=== PATIENT | female | born 1995 | race Caucasian/White ===

== ENCOUNTER 2020-08-05 13:48 | Emergency (ER) | payer OTHER, SELFPAY ==
[2020-08-05 13:56] VITALS: BP 135/72; PULSE 85; RESP 18; TEMP 37.1; O2SAT 98; BMI 25.6
--- NOTE | 2020-08-05 14:12 | ED_ITS ---
HPI - Skin/Abscess/Foreign Bdy General Chief complaint: Skin/Abscess/Foreign Body Stated complaint: cut toe at nail salon, suspects infection Time Seen by Provider: 08/05/20 14:01 Source: patient Mode of arrival: Family Vehicle Limitations: no limitations History of Present Illness HPI narrative: 24F nonsmoker with noncontributory medical history presents with a chief complaint of some redness and irritation along the nail of her right great toe. Yesterday she was getting a pedicure and she states they told her she was starting to develop an ingrown toenail and elevated her nail and trim some of it and now she has some redness and tenderness along the nail fold. She has mild pain with ambulation and motion of her toe. She denies any drainage, red streaks or systemic findings such as fever, chills, nausea or vomiting. complaint: other Onset (ago): day(s) Tetanus up to date: yes Location: R foot Severity: mild Quality: aching Pain Consistency: constant Relieving factors: none Exacerbating factors: palpation and movement Associated symptoms: denies other symptoms Treatments prior to arrival: none Related Data Previous Rx's Medication Instructions Recorded mupirocin 1 applic TOPICAL BID #15 g 08/05/20 Allergies Allergy/AdvReac Type Severity Reaction Status Date / Time No Known Drug Allergies Allergy Verified 08/05/20 13:56 Review of Systems Review of Systems ROS Unobtainable: All systems reviewed & are unremarkable except as noted in HPI and below Constitutional Constitutional: Denies chills, Denies fatigue, Denies fever(s), Denies frequent falls, Denies lethargy and Denies weakness Eyes Eyes: Denies change in vision, Denies eye discharge, Denies irritation and Denies loss of vision ENT Ears, Nose, Mouth, and Throat: Denies change in voice, Denies dizziness, Denies neck pain, Denies sore throat and Denies throat swelling Cardiovascular Cardiovascular: Denies chest pain, Denies irregular heart rhythm, Denies lightheadedness, Denies palpitations, Denies dyspnea, Denies dyspnea on exertion and Denies orthopnea Respiratory Respiratory: Denies cough, Denies dyspnea, Denies dyspnea on exertion and Denies wheezing Gastrointestinal Gastrointestinal: Denies abdominal pain, Denies change in bowel habits, Denies diarrhea, Denies nausea and Denies vomiting Musculoskeletal Musculoskeletal: Denies neck pain and Denies numbness Integumentary/Breasts Skin/Breast: Denies pruritus, Denies erythema, Denies rash, Reports skin pain, Reports skin swelling and Denies wounds Neurologic Neurologic: Denies behavioral changes, Denies confusion, Denies dizziness, Denies frequent falls, Denies loss of vision, Denies numbness and Denies weakness Psychiatric Psychiatric: Denies anxiety, Denies behavioral changes, Denies confusion, Denies depression, Denies homicidal ideation and Denies suicidal ideation Endocrine Endocrine: Denies fatigue, Denies flushing and Denies palpitations Hematologic/Lymphatic Hematologic/Lymphatic: Denies easy bruising Allergic/Immunologic Allergic/Immunologic: Denies urticaria, Denies throat swelling and Denies wheezing Patient History Social History Smoking Status: Never smoker Smoking Status: Never smoker alcohol intake frequency: 0-2 drinks per day Alcohol type: hard liquor Substance Use Type: does not use Exam Narrative Exam Narrative: GEN: AOx3 and in mild distress EYES: Pupils are equal, round, and reactive to light and accommodation. Extraoccular muscles are intact bilaterally. There is no subconjunctival hemorrhage or exudate. CHEST: Lungs are clear to auscultation bilaterally and free of wheezes, rales, or rhonchi. Heart rate is regular rhythm, there are no murmurs, clicks, rubs, or gallops. There is no chest wall tenderness. ABD: Abdomen is soft and nontender. There is no guarding or rebound. Bowel so unds are normal in all 4 quadrants. There is no mass or organomegaly. EXT: Full painless ROM of all extremities with no loss of sensation or strength. SKIN: Minimal erythema at the medial edge of toenail and nail fold of right great toe. No fluctuance or induration, no drainage, no swelling be on the nail fold, no red streaks. Warm, pink, and dry. No erythema or rash Initial Vital Signs Initial Vital Signs: Vital Signs Temperature 98.8 F 08/05/20 13:56 Pulse Rate 85 08/05/20 13:56 Respiratory Rate 18 08/05/20 13:56 Blood Pressure 135/72 08/05/20 13:56 Pulse Oximetry 98 08/05/20 13:56 Course Vital Signs Vital signs: Vital Signs - 8 hr 08/05/20 13:56 Temperature 98.8 F Pulse Rate 85 Respiratory Rate 18 Blood Pressure 135/72 Pulse Oximetry 98 Discharge Plan Departure Patient Disposition: Home Clinical Impression: Paronychia due to ingrown nail Instructions: DI for Paronychia Activity Restrictions/Additional Instructions: *You have been diagnosed with [early paronychia right great toe] *What to do: *Take medications as directed *Follow up with your primary care provider in 2-3 days, call for an appointment. Let them know you were seen in the Emergency Department and that we ask that you be seen in follow up * please consider soaking your right foot in warm water with Epson salts twice daily *Return to ER if you should have any new, worsening or concerning symptoms, such as [increased pain, redness, drainage] Prescriptions: New mupirocin 2 % ointment 1 applic topical BID Qty: 15 RF: 0
== END 2020-08-05 14:11 | disposition home or self-care (01) ==
PROVIDERS: Emergency Provider Emergency Medicine
DX: L03.031 Cellulitis of right toe (principal)
CPT/HCPCS: 99281

== ENCOUNTER 2022-10-29 09:48 | Day surgery (SDC) | payer OTHER, SELFPAY ==
--- NOTE | 2022-10-29 | PATH_ITS ---
[facility] [place] Accession Number: [id number] No. of containers..01 Tissue . 01 Material submitted: . rectum - RECTAL BIOPSY . 01 Diagnosis: Rectum, Biopsy: Anorectal mucosa with features suggestive of mucosal prolapse. Negative for active, chronic, and microscopic colitis. Negative for granulomas, dysplasia, and malignancy. MRV 11/04/2022 1810 Local . 01 Electronically signed: . Marcia Faust MD, Pathologist NPI- [id number] . 01 Gross description: . The specimen is received in formalin labeled with the patient's name, , and rectal biopsy, and consists of four chapa soft tissue fragments ranging from 0.1 cm to 0.2 cm in greatest dimension. Submitted entirely in cassette A1. ([id number]) /FRR 11/01/2022 1433 Local . 01 Pathologist provided ICD-10: K64.9 . 01 CPT . 285932 Specimen Comment: A courtesy copy of this report has been sent to [phone] Performed at: [facility] [address] [place] [address], [place], [place] [id number] MD Angel Luis Soriano MD Phone: [phone]
[2022-10-29 10:05] VITALS: BP 118/80; PULSE 67; RESP 19; TEMP 36.8; O2SAT 100; BMI 27.4
[2022-10-29] MEDS: LACTATED RINGERS 1,000 ML 100 ML IV (10:15)
[2022-10-29 10:21] VITALS: BMI 27.4
--- NOTE | 2022-10-29 10:28 | PM.PREOP ---
Pre-operative Note Interval Note History & Physical reviewed/Exam performed by Physician: Yes Changes to H&P: No
[2022-10-29] MEDS: BUPIVACAINE 0.25% (PF) VIAL 30 ML INJ (10:55)
--- NOTE | 2022-10-29 10:56 | SUR.OPER ---
Lithotomy on padded OR bed, head on pillow, arms secured on padded arm boards at <90 degrees abduction. Legs secured in padded yellow fins stirrups.
[2022-10-29 11:10] VITALS: BP 140/83; PULSE 94; RESP 20; TEMP 36.1; O2SAT 100
[2022-10-29 11:15] VITALS: BP 133/82; PULSE 92; RESP 12; O2SAT 98
[2022-10-29 11:20] VITALS: BP 134/72; PULSE 92; RESP 16; TEMP 36.3; O2SAT 99
[2022-10-29 11:27] VITALS: BP 135/82; PULSE 80; RESP 12; TEMP 36.3; O2SAT 98
--- NOTE | 2022-10-29 12:01 | P.OP_ITS ---
Operative Date/Time/Diagnoses Date of procedure: 10/29/22 Time of procedure: 12:15 Pre-op diagnosis: Rectal pain Rectal bleeding Post-op diagnosis: other (Proctitis, anal fissure) Procedure & Clinicians Procedure: Rectal examination under anesthesia Same procedure as scheduled: Yes Indications: 27-year-old woman previous laser hemorrhoide[facility] here with continued rectal pain and bleeding. Surgeon: Farhat Sheriff Anesthesia Type: General Operative Notes Findings: Proctitis, posterior anal fissure Specimen(s): other (Rectal biopsy) Estimated Blood Loss (mL): 10 Procedure in detail: Patient was brought to the operating room placed supine on the table. Bilateral lower extremity compression devices were applied. General anesthesia was induced and she was intubated with an LMA. She was then placed into lithotomy position appropriately padded. Time-out was performed. We began by inserting the colonoscope into the rectum it was retroflexed and this demonstrated diffuse proctitis. There was no significant hemorrhoidal tissue. Multiple biopsies of the rectum were performed with forceps. The anal canal was mildly stenotic. There was a posterior midline fissure noted. There were no other external pathologies. She tolerated the procedure well and was transferred to recovery in stable condition. Complications: none Post-operative Condition: stable Disposition: same day surgery
== END 2022-10-29 12:00 | disposition home or self-care (01) ==
PROVIDERS: Referring Provider Surgery; Visit Provider Surgery
PROC: (CPT 45305; principal; 2022-10-29 11:00)
DX: K62.89 Other specified diseases of anus and rectum (principal); K60.2 Anal fissure, unspecified; K62.4 Stenosis of anus and rectum
CPT/HCPCS: 45305; J1100; J2405; J2704; J3010; J3490

== ENCOUNTER 2022-11-04 15:17 | Emergency (ER) | payer OTHER, SELFPAY ==
[2022-11-04 15:18] VITALS: BP 154/88; PULSE 86; RESP 15; TEMP 36.9; O2SAT 98; BMI 27.4
[2022-11-04 15:22] VITALS: BP 154/88; PULSE 88; O2SAT 98
[2022-11-04 15:30] VITALS: BP 145/94; PULSE 79; O2SAT 98
[2022-11-04 16:00] VITALS: BP 144/88; PULSE 88; O2SAT 97
[2022-11-04] MEDS: PANTOPRAZOLE 40 MG VIAL 80 MG IV (16:07)
[2022-11-04] MEDS: ONDANSETRON 4 MG/2 ML INJ IV (16:07)
[2022-11-04 16:10] LABS: INR 0.9 (0.9-1.3); Prothrombin Time 10.4 SECONDS (10.1-12.7)
[2022-11-04 16:12] LABS: PTT Partial Thromboplastin Tim 25 SECONDS (26-36)
[2022-11-04] MEDS: SODIUM CHLORIDE 0.9% 1,000 ML 1000 ML IV (16:17)
[2022-11-04] MEDS: ACETAMINOPHEN 325 MG TABLET 975 MG PO (16:17)
[2022-11-04 16:28] LABS: Add Manual Diff / Slide Review NO; Basophils Absolute Auto 0 /uL (0-100); Basophils Percent Auto 0.4 % (0-2); Eosinophils Absolute Auto 100 /uL (0-450); Eosinophils Percent Auto 1.3 % (2-4); Hematocrit 39.1 % (36-46); Hemoglobin 13.3 g/dL (12.0-16.0); Lymphocytes Absolute Auto 2400 /uL (1100-4500); Lymphocytes Percent Auto 28.9 % (25-40); Mean Corpuscular HGB Conc 34.1 % (30-36); Mean Corpuscular Hemoglobin 29.9 PG (26-34); Mean Corpuscular Volume 87.6 fL (80-100); Monocytes Absolute Auto 800 /uL (0-900); Monocytes Percent Auto 9.6 % (3-14); Neutrophils Absolute Auto 5000 /uL (1500-7000); Neutrophils Percent Auto 59.8 % (50-75); Platelet Count 313 X10^3/uL (150-400); Red Blood Cell Count 4.47 X10^6/uL (4.0-5.2); Red Cell Distribution Width 12.8 % (11.6-14.8); White Blood Cell Count 8.4 X10^3/uL (4.5-11.0)
[2022-11-04 16:38] VITALS: BP 119/73; PULSE 84; O2SAT 97
[2022-11-04 16:45] LABS: Alanine Aminotransferase 31 IU/L (<35); Albumin 4.3 g/dL (3.5-5.0); Albumin Globulin Ratio 1.3 (1.0-2.8); Alkaline Phosphatase 51 U/L (38-126); Aspartate Aminotransferase 28 IU/L (14-36); BUN Creatinine Ratio 11.8 (6-22); Bilirubin Total 0.3 mg/dL (0.2-1.3); Blood Urea Nitrogen 9 mg/dL (7-17); Calcium 9.6 mg/dL (8.4-10.2); Carbon Dioxide 27 mmol/L (22-32); Chloride 102 mmol/L (98-107); Estimated Glomerular Filt Rate > 60 mL/min (>60); Globulin 3.2 g/dL (1.7-4.1); Glucose 101 mg/dL (70-100); HEMOLYSIS < 15 (0-50); Potassium 3.6 mmol/L (3.4-5.1); Sodium 138 mmol/L (137-145); Total Protein 7.5 g/dL (6.3-8.2)
[2022-11-04 17:00] VITALS: BP 140/82; PULSE 76; O2SAT 98
--- NOTE | 2022-11-04 18:11 | ED_ITS ---
HPI - GI Bleed General Chief complaint: GI Bleed Stated complaint: intestinal bleeding Time Seen by Provider: 11/04/22 16:05 Source: patient Mode of arrival: Ambulatory Limitations: no limitations History of Present Illness HPI Narrative: Patient is a 27-year-old female. Over the past 6 months has been having issues with rectal bleeding. She did have an exam under anesthesia with general surgery recently and was told that she has fissures. Today she had another episode of rectal bleeding. She does have some very minor lower abdominal tenderness. No fevers. No vomiting. No urinary symptoms. No vaginal bleeding. Not on blood thinners. She is on stool softeners and has been having some diarrhea recently as well. No recent travel. No recent antibiotics. Related Data Home Medications Medication Instructions Recorded Confirmed drospirenone 3 mg-ethinyl 1 tab PO DAILY 10/24/22 10/29/22 estradiol 0.02 mg tablet (GEOFF (28)) sertraline 100 mg tablet (Zoloft) 100 mg PO DAILY 10/24/22 10/29/22 sumatriptan succinate 25 mg tablet 25 mg PO ONCE 10/24/22 10/29/22 zolpidem 10 mg tablet (Ambien) 10 mg PO BEDTIME PRN Migraine 10/24/22 10/29/22 NIFEDIPINE TOPICAL topical 10/29/22 Previous Rx's Medication Instructions Recorded acetaminophen 325 mg capsule 650 mg PO QID PRN pain #60 caps 10/29/22 (Tylenol) docusate sodium 100 mg capsule 100 mg PO BID #30 caps 10/29/22 (Colace) mesalamine 1,000 mg rectal 1 g [place] BEDTIME 6 weeks #30 ea 10/29/22 suppository wheat dextrin 3 gram/3.8 gram oral 3 g PO BID #144 grams 10/29/22 powder (Benefiber Sugar Free (dextrin)) Allergies Allergy/AdvReac Type Severity Reaction Status Date / Time Sulfa (Sulfonamide Allergy Verified 11/04/22 15:25 Antibiotics) Review of Systems Constitutional Constitutional: Reports system reviewed and no additional complaints, except as documented Gastrointestinal Gastrointestinal: Reports system reviewed and no additional complaints, except as documented Genitourinary Genitourinary: Reports system reviewed and no additional complaints, except as documented Integumentary/Breasts Skin/Breast: Reports system reviewed and no additional complaints, except as documented Hematologic/Lymphatic On Anticoagulants: No Patient History Medical History Hemorrhoids Migraines PCOS (polycystic ovarian syndrome) PTSD (post-traumatic stress disorder) Surgical History H/O hemorrhoidectomy Hx of tonsillectomy [place] teeth extracted Family History Father Cancer Grandfather Cancer Uncle Diabetes mellitus Social History marital status: household members: spouse and children lives independently: Yes occupational status: employed Smoking Status: Never smoker alcohol intake: current substance use type: does not use Smoking Status: Never smoker alcohol intake frequency: holidays/special occasions only Alcohol type: hard liquor Substance Use Type: does not use Exam Initial Vital Signs Initial Vital Signs: Vital Signs Temperature 98.5 F 11/04/22 15:18 Pulse Rate 86 11/04/22 15:18 Respiratory Rate 15 11/04/22 15:18 Blood Pressure 154/88 H 11/04/22 15:18 Pulse Oximetry 98 11/04/22 15:18 Oxygen Delivery Method Room Air 11/04/22 15:18 Const General: cooperative, comfortable and No ill appearing HENMT Head: normal to inspection and normocephalic GI Inspection: normal to inspection and non-distended Palpation: soft Skin General: no rashes or lesions noted Neuro General: patient alert, patient awake and moves all extremities Extrem General: normal to inspection Course Orders Ordered: ED Orders 11/04/22 15:44 EKG-12 Lead Stat 11/04/22 15:45 Complete Blood Count AUTO DIFF Stat Comprehensive Metabolic Panel Stat PTT Partial Thromboplastin Wojciech Stat Prothrombin Time INR Stat Type and Screen Stat Discontinued Medications Acetaminophen (Acetaminophen 325 Mg Tablet) 975 mg PO NOW ONE Stop: 11/04/22 16:14 Last Admin: 11/04/22 16:17 Dose: 975 mg Documented By: ASHLI Sodium Chloride (Normal Saline 0.9%) 1,000 mls @ 1,000 mls/hr IV BOLUS ONE Stop: 11/04/22 17:12 Last Infusion: 11/04/22 17:23 Dose: 0 mls/hr Documented By: Admin: 11/04/22 16:17 Dose: 1,000 mls/hr Documented By: ASHLI Ondansetron HCl (Ondansetron 4 Mg/2 Ml Inj) 4 mg IV NOW PRN PRN Reason: Nausea And Vomiting Last Admin: 11/04/22 16:07 Dose: 4 mg Documented By: ASHLI Pantoprazole Sodium (Pantoprazole 40 Mg Vial) 80 mg IV NOW ONE Stop: 11/04/22 15:45 Last Admin: 11/04/22 16:07 Dose: 80 mg Documented By: ASHLI Vital Signs Vital signs: Vital Signs - 8 hr 11/04/22 16:38 11/04/22 16:38 11/04/22 17:00 Pulse Rate 84 Blood Pressure 119/73 140/82 Pulse Oximetry 97 11/04/22 17:00 Pulse Rate 76 Blood Pressure Pulse Oximetry 98 MDM - GI Bleed Lab Data Attestation: I reviewed the patient's lab results. 11/04/22 15:45 11/04/22 15:45 Labs: Lab Results 11/04/22 11/04/22 11/04/22 Range/Units 15:45 15:45 15:45 WBC 8.4 (4.5-11.0) X10^3/uL RBC 4.47 (4.0-5.2) X10^6/uL Hgb 13.3 (12.0-16.0) g/dL Hct 39.1 (36-46) % MCV 87.6 (80-100) fL MCH 29.9 (26-34) PG MCHC 34.1 (30-36) % RDW 12.8 (11.6-14.8) % Plt Count 313 (150-400) X10^3/uL Neut % (Auto) 59.8 (50-75) % Lymph % (Auto) 28.9 (25-40) % Morton % (Auto) 9.6 (3-14) % Eos % (Auto) 1.3 L (2-4) % Baso % (Auto) 0.4 (0-2) % Neut # (Auto) 5000 (5255-7419) /uL Lymph # (Auto) 2400 (8879-5998) /uL Morton # (Auto) 800 (0-900) /uL Eos # (Auto) 100 (0-450) /uL Baso # (Auto) 0 (0-100) /uL PT 10.4 (10.1-12.7) SECONDS INR 0.9 (0.9-1.3) APTT 25 L (26-36) SECONDS Sodium 138 (137-145) mmol/L Potassium 3.6 (3.4-5.1) mmol/L Chloride 102 (98-107) mmol/L Carbon Dioxide 27 (22-32) mmol/L BUN 9 (7-17) mg/dL Creatinine 0.76 (0.52-1.04) mg/dL Estimated GFR > 60 (>60) mL/min BUN/Creatinine Ratio 11.8 (6-22) Glucose 101 H (70-100) mg/dL Calcium 9.6 (8.4-10.2) mg/dL Total Bilirubin 0.3 (0.2-1.3) mg/dL AST 28 (14-36) IU/L ALT 31 (<35) IU/L Alkaline Phosphatase 51 (38-126) U/L Total Protein 7.5 (6.3-8.2) g/dL Albumin 4.3 (3.5-5.0) g/dL Globulin 3.2 (1.7-4.1) g/dL Albumin/Globulin Ratio 1.3 (1.0-2.8) Blood Type Antibody Screen 11/04/22 Range/Units 15:45 WBC (4.5-11.0) X10^3/uL RBC (4.0-5.2) X10^6/uL Hgb (12.0-16.0) g/dL Hct (36-46) % MCV (80-100) fL MCH (26-34) PG MCHC (30-36) % RDW (11.6-14.8) % Plt Count (150-400) X10^3/uL Neut % (Auto) (50-75) % Lymph % (Auto) (25-40) % Morton % (Auto) (3-14) % Eos % (Auto) (2-4) % Baso % (Auto) (0-2) % Neut # (Auto) (1956-9021) /uL Lymph # (Auto) (1572-4896) /uL Morton # (Auto) (0-900) /uL Eos # (Auto) (0-450) /uL Baso # (Auto) (0-100) /uL PT (10.1-12.7) SECONDS INR (0.9-1.3) APTT (26-36) SECONDS Sodium (137-145) mmol/L Potassium (3.4-5.1) mmol/L Chloride (98-107) mmol/L Carbon Dioxide (22-32) mmol/L BUN (7-17) mg/dL Creatinine (0.52-1.04) mg/dL Estimated GFR (>60) mL/min BUN/Creatinine Ratio (6-22) Glucose (70-100) mg/dL Calcium (8.4-10.2) mg/dL Total Bilirubin (0.2-1.3) mg/dL AST (14-36) IU/L ALT (<35) IU/L Alkaline Phosphatase (38-126) U/L Total Protein (6.3-8.2) g/dL Albumin (3.5-5.0) g/dL Globulin (1.7-4.1) g/dL Albumin/Globulin Ratio (1.0-2.8) Blood Type O Positive Antibody Screen Negative Point of Care Testing Test Results Negative Stool Occult Blood Positive Urine Dip Bedside Urine Glucose Negative Bedside Urine Bilirubin - Negative Bedside Urine Ketone - Negative Urine Specific [place] 1.005 Bedside Urine Occult Blood - Negative Bedside Urine pH 7.0 Bedside Urine Protein - Negative Bedside Urine Urobilinogen - Negative Bedside Urine Nitrite - Negative Bedside Urine Leukocytes - Negative Esterase MDM Narrative Medical decision making narrative: Benign exam. Vital signs unremarkable. Labs unremarkable. Has had issues with GI bleeding prior to the visit today. No indication for emergent surgical consultation or admission to the hospital will discharge patient home with return precautions. She expressed understanding and agreement. Discharge Plan Departure Patient Disposition: Home Clinical Impression: Bright red blood per rectum Instructions: DI for Rectal Bleeding Activity Restrictions/Additional Instructions: Continue to take all of your medications as directed. Keep all of your scheduled medical appointments. Follow all of the instructions given to you by Dr. Sheriff.. Return to the emergency department for new or worsening symptoms. Prescriptions: No Action NIFEDIPINE TOPICAL topical Rx Instructions: 0.2% NIFEDIPINE AND 2% LIDOCAINE CALLED INTO [facility]. 30GRAMS 1 REFILL [phone] zolpidem [Ambien] 10 mg tablet 10 mg PO BEDTIME PRN (Reason: Migraine) drospirenone-ethinyl estradiol [GEOFF (28)] 3-0.02 mg tablet 1 tab PO DAILY sertraline [Zoloft] 100 mg tablet 100 mg PO DAILY sumatriptan succinate 25 mg tablet 25 mg PO ONCE docusate sodium [Colace] 100 mg capsule 100 mg PO BID Qty: 30 0RF acetaminophen [Tylenol] 325 mg capsule 650 mg PO QID PRN (Reason: pain) Qty: 60 0RF Benefiber Sugar Free (dextrin) 3 gram/3.8 gram powder 3 g PO BID Qty: 144 0RF Rx Instructions: mix into at least 4 oz water or juice before administering mesalamine 1,000 mg suppository 1 g [place] BEDTIME 42 Days Qty: 30 3RF Referrals: Miscellaneous,Doctor, MD [Primary Care Provider] - Stand Alone Forms: Patient Portal/API, Work Release Note
== END 2022-11-04 18:15 | disposition home or self-care (01) ==
PROVIDERS: Emergency Medicine; Emergency Provider Emergency Medicine
DX: K62.5 Hemorrhage of anus and rectum (principal)
CPT/HCPCS: 36415; 80053; 81003; 81025; 82272; 85025; 85610; 85730; 86850; 86900; 86901; 93005; 96361; 96374; 96375; 99284; C9113; J2405

== ENCOUNTER 2022-11-14 11:06 | Emergency (ER) | payer OTHER, SELFPAY ==
[2022-11-14 11:13] VITALS: BP 163/77; PULSE 78; RESP 18; TEMP 36.6; O2SAT 98; BMI 27.4
[2022-11-14 11:37] LABS: Add Manual Diff / Slide Review NO; Basophils Absolute Auto 0 /uL (0-100); Basophils Percent Auto 0.7 % (0-2); Eosinophils Absolute Auto 100 /uL (0-450); Eosinophils Percent Auto 0.9 % (2-4); Hematocrit 38.4 % (36-46); Hemoglobin 12.9 g/dL (12.0-16.0); Lymphocytes Absolute Auto 1900 /uL (1100-4500); Lymphocytes Percent Auto 26.3 % (25-40); Mean Corpuscular HGB Conc 33.6 % (30-36); Mean Corpuscular Hemoglobin 29.5 PG (26-34); Mean Corpuscular Volume 87.9 fL (80-100); Monocytes Absolute Auto 500 /uL (0-900); Monocytes Percent Auto 7.4 % (3-14); Neutrophils Absolute Auto 4600 /uL (1500-7000); Neutrophils Percent Auto 64.7 % (50-75); Platelet Count 309 X10^3/uL (150-400); Red Blood Cell Count 4.37 X10^6/uL (4.0-5.2); Red Cell Distribution Width 13.2 % (11.6-14.8); White Blood Cell Count 7.1 X10^3/uL (4.5-11.0)
[2022-11-14 11:43] LABS: INR 0.9 (0.9-1.3); Prothrombin Time 10.4 SECONDS (10.1-12.7)
[2022-11-14 11:46] LABS: PTT Partial Thromboplastin Tim 25 SECONDS (26-36)
[2022-11-14] MEDS: ONDANSETRON 4 MG/2 ML INJ IV (11:46)
[2022-11-14] MEDS: PANTOPRAZOLE 40 MG VIAL 80 MG IV (11:46)
[2022-11-14 11:48] LABS: Alanine Aminotransferase 28 IU/L (<35); Albumin 4.3 g/dL (3.5-5.0); Albumin Globulin Ratio 1.4 (1.0-2.8); Alkaline Phosphatase 61 U/L (38-126); Aspartate Aminotransferase 32 IU/L (14-36); BUN Creatinine Ratio 11.8 (6-22); Bilirubin Total 0.4 mg/dL (0.2-1.3); Blood Urea Nitrogen 9 mg/dL (7-17); Calcium 9.2 mg/dL (8.4-10.2); Carbon Dioxide 26 mmol/L (22-32); Chloride 104 mmol/L (98-107); Estimated Glomerular Filt Rate > 60 mL/min (>60); Glucose 95 mg/dL (70-100); HEMOLYSIS < 15 (0-50); Potassium 3.8 mmol/L (3.4-5.1); Sodium 138 mmol/L (137-145); Total Protein 7.3 g/dL (6.3-8.2)
[2022-11-14 12:22] VITALS: BP 130/75; PULSE 73; O2SAT 98
[2022-11-14 12:30] VITALS: BP 120/70; PULSE 70; O2SAT 98
--- NOTE | 2022-11-14 12:35 | ED_ITS ---
HPI - GI Bleed <Ronald Koo PA-C - Last Filed: 11/14/22 18:03> General Chief complaint: GI Bleed Stated complaint: Rectal bleeding Time Seen by Provider: 11/14/22 12:26 Source: patient Mode of arrival: Ambulatory History of Present Illness HPI Narrative: This is a 18 now female presents emergency department due to 3 episodes of rectal bleeding this morning. Patient states that was the stool was ?dark and bright red and ?. She reports some discomfort in her lower abdomen. She states that she would exam under anesthesia with Dr. Sheriff 3 weeks ago and was told that she would anal fissures as well as mucosal prolapse. She was supposed to follow up with Dr. Sheriff today but came here due to the episodes of rectal bleeding today. Denies any nausea, vomiting, chest pain, shortness breath, or any other concerning signs or symptoms. Related Data Home Medications Medication Instructions Recorded Confirmed drospirenone 3 mg-ethinyl 1 tab PO DAILY 10/24/22 10/29/22 estradiol 0.02 mg tablet (GEOFF (28)) sertraline 100 mg tablet (Zoloft) 100 mg PO DAILY 10/24/22 10/29/22 sumatriptan succinate 25 mg tablet 25 mg PO ONCE 10/24/22 10/29/22 zolpidem 10 mg tablet (Ambien) 10 mg PO BEDTIME PRN Migraine 10/24/22 10/29/22 NIFEDIPINE TOPICAL topical 10/29/22 Previous Rx's Medication Instructions Recorded acetaminophen 325 mg capsule 650 mg PO QID PRN pain #60 caps 10/29/22 (Tylenol) docusate sodium 100 mg capsule 100 mg PO BID #30 caps 10/29/22 (Colace) mesalamine 1,000 mg rectal 1 g [place] BEDTIME 6 weeks #30 ea 10/29/22 suppository wheat dextrin 3 gram/3.8 gram oral 3 g PO BID #144 grams 10/29/22 powder (Benefiber Sugar Free (dextrin)) Allergies Allergy/AdvReac Type Severity Reaction Status Date / Time Sulfa (Sulfonamide Allergy Verified 11/14/22 11:17 Antibiotics) Review of Systems <Ronald Koo PA-C - Last Filed: 11/14/22 18:03> Review of Systems Narrative: GENERAL: Denies chills, fatigue, malaise, fever, sweats. HEENT: Denies sinus pain, ear pain, sore throat, difficulty swallowing, dizziness. RESPIRATORY: Denies dyspnea, cough, wheezing, hemoptysis, sputum. CARDIOVASCULAR: Denies chest pain, palpitations, orthopnea, edema, GASTROINTESTINAL: Reports rectal bleeding : Denies dysuria, frequency, incontinence, hematuria, urinary retention. MUSCULOSKELETAL: denies weakness, joint pain, or bony pain SKIN: Denies rash, skin lesions, or other NEUROLOGIC: Denies weakness, headache, numbness, change in speech, confusion, seizures, incoordination. PSYCHIATRIC: No concerning psychosocial issues. 12 point review of systems is negative except for those stated above Patient History <Ronald Koo PA-C - Last Filed: 11/14/22 18:03> Medical History Hemorrhoids Migraines PCOS (polycystic ovarian syndrome) PTSD (post-traumatic stress disorder) Surgical History H/O hemorrhoidectomy Hx of tonsillectomy [place] teeth extracted Family History Father Cancer Grandfather Cancer Uncle Diabetes mellitus Social History marital status: household members: spouse and children lives independently: Yes occupational status: employed Smoking Status: Never smoker alcohol intake: current substance use type: does not use Smoking Status: Never smoker alcohol intake frequency: holidays/special occasions only Alcohol type: hard liquor Substance Use Type: does not use Exam <Ronald Koo PA-C - Last Filed: 11/14/22 18:03> Narrative Exam Narrative: GENERAL: Well-developed patient, in mild distress. HEAD: Atraumatic. Normocephalic. EYES: Pupils equal round and reactive. Extraocular motions intact. No scleral icterus. No injection or drainage. ENT: Nose without bleeding, purulent drainage. Throat without erythema, tonsillar hypertrophy or exudate. Airway patent. NECK: Trachea midline. Non tender CARDIOVASCULAR: Regular rate and rhythm without murmurs, gallops, or rubs. RESPIRATORY: Clear to auscultation. Breath sounds equal bilaterally. No wheezes, rales, or rhonchi. GASTROINTESTINAL: Mild tenderness to palpation to the suprapubic area EXTREMITIES: No edema or joint tenderness. BACK: Nontender without deformity or crepitance. No flank tenderness. NEURO: AOx3. SKIN: No rash or erythema of visible areas Initial Vital Signs Initial Vital Signs: Vital Signs Temperature 97.8 F 11/14/22 11:13 Pulse Rate 78 11/14/22 11:13 Respiratory Rate 18 11/14/22 11:13 Blood Pressure 163/77 H 11/14/22 11:13 Pulse Oximetry 98 11/14/22 11:13 Oxygen Delivery Method Room Air 11/14/22 11:13 <Kasey Tillman DO - Last Filed: 11/15/22 07:20> Initial Vital Signs Initial Vital Signs: Vital Signs Temperature 97.8 F 11/14/22 11:13 Pulse Rate 78 11/14/22 11:13 Respiratory Rate 18 11/14/22 11:13 Blood Pressure 163/77 H 11/14/22 11:13 Pulse Oximetry 98 11/14/22 11:13 Oxygen Delivery Method Room Air 11/14/22 11:13 Course <Ronald Koo PA-C - Last Filed: 11/14/22 18:03> Orders Ordered: Discontinued Medications Ondansetron HCl (Ondansetron 4 Mg/2 Ml Inj) 4 mg IV NOW PRN PRN Reason: Nausea And Vomiting Last Admin: 11/14/22 11:46 Dose: 4 mg Documented By: MARK Ondansetron HCl (Ondansetron 4 Mg Odt) 4 mg SL NOW PRN PRN Reason: Nausea And Vomiting Pantoprazole Sodium (Pantoprazole 40 Mg Vial) 80 mg IV NOW ONE Stop: 11/14/22 11:17 Last Admin: 11/14/22 11:46 Dose: 80 mg Documented By: MARK Vital Signs Vital signs: Vital Signs - 8 hr 11/14/22 11:13 11/14/22 12:22 11/14/22 12:22 Temperature 97.8 F Pulse Rate 78 73 Respiratory Rate 18 Blood Pressure 163/77 H 130/75 Pulse Oximetry 98 98 Oxygen Delivery Method Room Air 11/14/22 12:30 11/14/22 12:30 11/14/22 13:00 Temperature Pulse Rate 70 Respiratory Rate Blood Pressure 120/70 139/75 Pulse Oximetry 98 Oxygen Delivery Method 11/14/22 13:00 Temperature Pulse Rate 83 Respiratory Rate Blood Pressure Pulse Oximetry 98 Oxygen Delivery Method <Kasey Tillman DO - Last Filed: 11/15/22 07:20> Orders Ordered: Discontinued Medications Ondansetron HCl (Ondansetron 4 Mg/2 Ml Inj) 4 mg IV NOW PRN PRN Reason: Nausea And Vomiting Last Admin: 11/14/22 11:46 Dose: 4 mg Documented By: MARK Ondansetron HCl (Ondansetron 4 Mg Odt) 4 mg SL NOW PRN PRN Reason: Nausea And Vomiting Pantoprazole Sodium (Pantoprazole 40 Mg Vial) 80 mg IV NOW ONE Stop: 11/14/22 11:17 Last Admin: 11/14/22 11:46 Dose: 80 mg Documented By: MARK Vital Signs Vital signs: Vital Signs - 8 hr 11/14/22 11:13 11/14/22 12:22 11/14/22 12:22 Temperature 97.8 F Pulse Rate 78 73 Respiratory Rate 18 Blood Pressure 163/77 H 130/75 Pulse Oximetry 98 98 Oxygen Delivery Method Room Air 11/14/22 12:30 11/14/22 12:30 11/14/22 13:00 Temperature Pulse Rate 70 Respiratory Rate Blood Pressure 120/70 139/75 Pulse Oximetry 98 Oxygen Delivery Method 11/14/22 13:00 Temperature Pulse Rate 83 Respiratory Rate Blood Pressure Pulse Oximetry 98 Oxygen Delivery Method MDM - GI Bleed <Ronald Koo PA-C - Last Filed: 11/14/22 18:03> Lab Data 11/14/22 11:23 11/14/22 11:23 Labs: Lab Results 11/14/22 11/14/22 11/14/22 Range/Units 11:23 11:23 11:23 WBC 7.1 (4.5-11.0) X10^3/uL RBC 4.37 (4.0-5.2) X10^6/uL Hgb 12.9 (12.0-16.0) g/dL Hct 38.4 (36-46) % MCV 87.9 (80-100) fL MCH 29.5 (26-34) PG MCHC 33.6 (30-36) % RDW 13.2 (11.6-14.8) % Plt Count 309 (150-400) X10^3/uL Neut % (Auto) 64.7 (50-75) % Lymph % (Auto) 26.3 (25-40) % [place] % (Auto) 7.4 (3-14) % Eos % (Auto) 0.9 L (2-4) % Baso % (Auto) 0.7 (0-2) % Neut # (Auto) 4600 (4314-5444) /uL Lymph # (Auto) 1900 (5129-4663) /uL [place] # (Auto) 500 (0-900) /uL Eos # (Auto) 100 (0-450) /uL Baso # (Auto) 0 (0-100) /uL PT 10.4 (10.1-12.7) SECONDS INR 0.9 (0.9-1.3) APTT 25 L (26-36) SECONDS Sodium 138 (137-145) mmol/L Potassium 3.8 (3.4-5.1) mmol/L Chloride 104 (98-107) mmol/L Carbon Dioxide 26 (22-32) mmol/L BUN 9 (7-17) mg/dL Creatinine 0.76 (0.52-1.04) mg/dL Estimated GFR > 60 (>60) mL/min BUN/Creatinine Ratio 11.8 (6-22) Glucose 95 (70-100) mg/dL Calcium 9.2 (8.4-10.2) mg/dL Total Bilirubin 0.4 (0.2-1.3) mg/dL AST 32 (14-36) IU/L ALT 28 (<35) IU/L Alkaline Phosphatase 61 (38-126) U/L Total Protein 7.3 (6.3-8.2) g/dL Albumin 4.3 (3.5-5.0) g/dL Globulin 3.0 (1.7-4.1) g/dL Albumin/Globulin Ratio 1.4 (1.0-2.8) Blood Type Antibody Screen 11/14/22 Range/Units 11:23 WBC (4.5-11.0) X10^3/uL RBC (4.0-5.2) X10^6/uL Hgb (12.0-16.0) g/dL Hct (36-46) % MCV (80-100) fL MCH (26-34) PG MCHC (30-36) % RDW (11.6-14.8) % Plt Count (150-400) X10^3/uL Neut % (Auto) (50-75) % Lymph % (Auto) (25-40) % [place] % (Auto) (3-14) % Eos % (Auto) (2-4) % Baso % (Auto) (0-2) % Neut # (Auto) (0443-1080) /uL Lymph # (Auto) (4101-8454) /uL [place] # (Auto) (0-900) /uL Eos # (Auto) (0-450) /uL Baso # (Auto) (0-100) /uL PT (10.1-12.7) SECONDS INR (0.9-1.3) APTT (26-36) SECONDS Sodium (137-145) mmol/L Potassium (3.4-5.1) mmol/L Chloride (98-107) mmol/L Carbon Dioxide (22-32) mmol/L BUN (7-17) mg/dL Creatinine (0.52-1.04) mg/dL Estimated GFR (>60) mL/min BUN/Creatinine Ratio (6-22) Glucose (70-100) mg/dL Calcium (8.4-10.2) mg/dL Total Bilirubin (0.2-1.3) mg/dL AST (14-36) IU/L ALT (<35) IU/L Alkaline Phosphatase (38-126) U/L Total Protein (6.3-8.2) g/dL Albumin (3.5-5.0) g/dL Globulin (1.7-4.1) g/dL Albumin/Globulin Ratio (1.0-2.8) Blood Type O Positive Antibody Screen Negative Point of Care Testing Test Results Negative Urine Dip Bedside Urine Glucose Negative Bedside Urine Bilirubin - Negative Bedside Urine Ketone - Negative Urine Specific Marissa 1.015 Bedside Urine Occult Blood - Negative Bedside Urine pH 6.0 Bedside Urine Protein - Negative Bedside Urine Urobilinogen - Negative Bedside Urine Nitrite - Negative Bedside Urine Leukocytes - Negative Esterase MDM Narrative Medical decision making narrative: MDM * differential diagnosis includes but not limited to upper GI bleed, lower GI bleed, hemorrhoids, anal fissures * Prior records reviewed: Patient was seen here 10 days ago for similar complaint. Has had issues with rectal bleeding for the last 6 months. Did not exam under anesthesia with general surgery recently and was told that she would anal fissures. History of hemorrhoidectomy lab work and vital signs unremarkable. Patient was discharged with return precautions given. * My lab interpretation: CBC unremarkable, no signs of anemia, PT, PTT, INR unremarkable. CMP unrema rkable BUN and creatinine within normal limits and low concern for upper GI bleed. * My imgaing interpretation: None obtained * Clinical Decision Rules/Scores evaluated: None * Independent discussions with: None ED Course: This is an otherwise healthy 27-year-old female presents to the emergency department complaining of repeated GI bleeding. She was recently seen by Dr. [place] where she had an exam under anesthesia which led to a diagnosis of ?mucosal prolapse and anal fissures which may be the cause of his GI bleeding. Patient is somewhat vague history and description of the bleeding and low concern for upper GI bleed as at this time. BUN and creatinine within normal limits as well. CBC unremarkable, no signs of anemia. Patient has established with Dr. Sheriff, of General surgery and recommended she follow up with Dr. Sheriff as planned. Patient did have mild abdominal tenderness to palpation although this is was unchanged from previous and low concern for any kind of acute abdomen. Patient does not report any history that would lead to any kind of upper GI bleed, no frequent NSAID use, no smoking. Shared Decision Making: Discussed plan with patient who is comfortable with the plan Social Considerations: None Disposition: Discharged to home <Kasey Tillman, - Last Filed: 11/15/22 07:20> Lab Data Labs: Lab Results 11/14/22 11/14/22 11/14/22 Range/Units 11:23 11:23 11:23 WBC 7.1 (4.5-11.0) X10^3/uL RBC 4.37 (4.0-5.2) X10^6/uL Hgb 12.9 (12.0-16.0) g/dL Hct 38.4 (36-46) % MCV 87.9 (80-100) fL MCH 29.5 (26-34) PG MCHC 33.6 (30-36) % RDW 13.2 (11.6-14.8) % Plt Count 309 (150-400) X10^3/uL Neut % (Auto) 64.7 (50-75) % Lymph % (Auto) 26.3 (25-40) % [place] % (Auto) 7.4 (3-14) % Eos % (Auto) 0.9 L (2-4) % Baso % (Auto) 0.7 (0-2) % Neut # (Auto) 4600 (1949-8033) /uL Lymph # (Auto) 1900 (3805-5764) /uL [place] # (Auto) 500 (0-900) /uL Eos # (Auto) 100 (0-450) /uL Baso # (Auto) 0 (0-100) /uL PT 10.4 (10.1-12.7) SECONDS INR 0.9 (0.9-1.3) APTT 25 L (26-36) SECONDS Sodium 138 (137-145) mmol/L Potassium 3.8 (3.4-5.1) mmol/L Chloride 104 (98-107) mmol/L Carbon Dioxide 26 (22-32) mmol/L BUN 9 (7-17) mg/dL Creatinine 0.76 (0.52-1.04) mg/dL Estimated GFR > 60 (>60) mL/min BUN/Creatinine Ratio 11.8 (6-22) Glucose 95 (70-100) mg/dL Calcium 9.2 (8.4-10.2) mg/dL Total Bilirubin 0.4 (0.2-1.3) mg/dL AST 32 (14-36) IU/L ALT 28 (<35) IU/L Alkaline Phosphatase 61 (38-126) U/L Total Protein 7.3 (6.3-8.2) g/dL Albumin 4.3 (3.5-5.0) g/dL Globulin 3.0 (1.7-4.1) g/dL Albumin/Globulin Ratio 1.4 (1.0-2.8) Blood Type Antibody Screen 11/14/22 Range/Units 11:23 WBC (4.5-11.0) X10^3/uL RBC (4.0-5.2) X10^6/uL Hgb (12.0-16.0) g/dL Hct (36-46) % MCV (80-100) fL MCH (26-34) PG MCHC (30-36) % RDW (11.6-14.8) % Plt Count (150-400) X10^3/uL Neut % (Auto) (50-75) % Lymph % (Auto) (25-40) % [place] % (Auto) (3-14) % Eos % (Auto) (2-4) % Baso % (Auto) (0-2) % Neut # (Auto) (5608-5068) /uL Lymph # (Auto) (0980-3228) /uL [place] # (Auto) (0-900) /uL Eos # (Auto) (0-450) /uL Baso # (Auto) (0-100) /uL PT (10.1-12.7) SECONDS INR (0.9-1.3) APTT (26-36) SECONDS Sodium (137-145) mmol/L Potassium (3.4-5.1) mmol/L Chloride (98-107) mmol/L Carbon Dioxide (22-32) mmol/L BUN (7-17) mg/dL Creatinine (0.52-1.04) mg/dL Estimated GFR (>60) mL/min BUN/Creatinine Ratio (6-22) Glucose (70-100) mg/dL Calcium (8.4-10.2) mg/dL Total Bilirubin (0.2-1.3) mg/dL AST (14-36) IU/L ALT (<35) IU/L Alkaline Phosphatase (38-126) U/L Total Protein (6.3-8.2) g/dL Albumin (3.5-5.0) g/dL Globulin (1.7-4.1) g/dL Albumin/Globulin Ratio (1.0-2.8) Blood Type O Positive Antibody Screen Negative Point of Care Testing Test Results Negative Urine Dip Bedside Urine Glucose Negative Bedside Urine Bilirubin - Negative Bedside Urine Ketone - Negative Urine Specific Marissa 1.015 Bedside Urine Occult Blood - Negative Bedside Urine pH 6.0 Bedside Urine Protein - Negative Bedside Urine Urobilinogen - Negative Bedside Urine Nitrite - Negative Bedside Urine Leukocytes - Negative Esterase Discharge Plan Departure Patient Disposition: Home Clinical Impression: Rectal bleed Activity Restrictions/Additional Instructions: Thank you for coming to the [facility] Emergency Department today. Your lab work today was very reassuring. You did not have any evidence of anemia or a significant loss in red blood cells, no white blood cell count and low concern for infection. I believe that this bleeding is coming from your anal fissures which you were diagnosed with Dr. Sheriff. Please follow up with Dr. Sheriff as soon as possible for further evaluation. I hope you feel better soon. Prescriptions: No Action NIFEDIPINE TOPICAL topical Rx Instructions: 0.2% NIFEDIPINE AND 2% LIDOCAINE CALLED INTO [facility]. 30GRAMS 1 REFILL [phone] zolpidem [Ambien] 10 mg tablet 10 mg PO BEDTIME PRN (Reason: Migraine) drospirenone-ethinyl estradiol [GEOFF (28)] 3-0.02 mg tablet 1 tab PO DAILY sertraline [Zoloft] 100 mg tablet 100 mg PO DAILY sumatriptan succinate 25 mg tablet 25 mg PO ONCE docusate sodium [Colace] 100 mg capsule 100 mg PO BID Qty: 30 0RF acetaminophen [Tylenol] 325 mg capsule 650 mg PO QID PRN (Reason: pain) Qty: 60 0RF Benefiber Sugar Free (dextrin) 3 gram/3.8 gram powder 3 g PO BID Qty: 144 0RF Rx Instructions: mix into at least 4 oz water or juice before administering mesalamine 1,000 mg suppository 1 g [place] BEDTIME 42 Days Qty: 30 3RF Referrals: Provider,Deangelo RANDOLPH [Primary Care Provider] - Farhat Sheriff MD [Physician] - Stand Alone Forms: Patient Portal/API <Kasey Tillman DO - Last Filed: 11/15/22 07:20> Cosign ED Attending Ronniature Attestation: I was immediately available in the department for consultation. Documentation has been reviewed.
[2022-11-14 13:00] VITALS: BP 139/75; PULSE 83; O2SAT 98
== END 2022-11-14 13:10 | disposition home or self-care (01) ==
PROVIDERS: Emergency Medicine; Emergency Provider Physician Assistant Medical
DX: K62.5 Hemorrhage of anus and rectum (principal)
CPT/HCPCS: 36415; 80053; 81003; 81025; 85025; 85610; 85730; 86850; 86900; 86901; 93005; 96374; 96375; 99284; C9113; J2405

== ENCOUNTER 2022-11-19 08:57 | Day surgery (SDC) | payer OTHER, SELFPAY ==
--- NOTE | 2022-11-19 | PATH_ITS ---
[facility] Accession Number: [id number] No. of containers..01 Tissue . 01 Material submitted: . colon - RANDOM COLON . 01 Diagnosis: Random Colon, Biopsy: Colonic mucosa with no diagnostic abnormality. Negative for active, chronic, and microscopic colitis. Negative for dysplasia and malignancy. [facility] 11/27/2022 1029 Local . 01 Electronically signed: . Harrison Chatman MD, PhD, Pathologist NPI- [id number] . 01 Gross description: . The specimen is received in formalin labeled with the patient's name, , and random colon bx, and consists of four chapa soft tissue fragments ranging from 0.5 cm to 0.7 cm in greatest dimension. Submitted entirely in cassette A1. ([id number]) /FRR 11/22/20221931 Local . 01 Pathologist provided ICD-10: K62.5 . 01 CPT . 484857 Specimen Comment: A courtesy copy of this report has been sent to [phone] Performed at: 01 [facility] [address] [place] [address], [place], [place] [id number] MD Angel Luis Soriano MD Phone: [phone]
[2022-11-19] MEDS: LACTATED RINGERS 1,000 ML 200 ML IV (09:07)
[2022-11-19 09:13] VITALS: BMI 28.3
[2022-11-19 09:18] VITALS: BP 118/77; PULSE 71; RESP 17; TEMP 36.7; O2SAT 99
--- NOTE | 2022-11-19 09:33 | PM.HP.1 ---
History of Present Illness History of Present Illness Date Patient Seen: 11/19/22 Time Patient Seen: 09:33 [place] [facility] [place]: 27-year-old woman here for EGD and colonoscopy. She has dark red blood per rectum of unknown etiology. She would previously undergone a rectal examination under anesthesia which demonstrated mild proctitis but did not entirely explain her symptoms. Family history of colon cancer in her father. [facility] Medical History Hemorrhoids Migraines PCOS (polycystic ovarian syndrome) PTSD (post-traumatic stress disorder) Surgical History H/O hemorrhoidectomy Hx of tonsillectomy [place] teeth extracted Family History Father Cancer Grandfather Cancer Uncle Diabetes mellitus Social History marital status: household members: spouse and children lives independently: Yes occupational status: employed Smoking Status: Never smoker alcohol intake: current substance use type: does not use Meds Home Medications and Allergies Home Medications Medication Instructions Recorded Confirmed Type drospirenone 3 mg-ethinyl 1 tab PO DAILY 10/24/22 11/19/22 History estradiol 0.02 mg tablet (GEOFF (28)) sertraline 100 mg tablet (Zoloft) 100 mg PO DAILY 10/24/22 11/19/22 History sumatriptan succinate 25 mg tablet 25 mg PO ONCE 10/24/22 11/19/22 History zolpidem 10 mg tablet (Ambien) 10 mg PO BEDTIME PRN Migraine 10/24/22 11/19/22 History NIFEDIPINE TOPICAL topical 10/29/22 History acetaminophen 325 mg capsule 650 mg PO QID PRN pain #60 caps 10/29/22 11/19/22 Rx (Tylenol) docusate sodium 100 mg capsule 100 mg PO BID #30 caps 10/29/22 11/19/22 Rx (Colace) mesalamine 1,000 mg rectal 1 g MO BEDTIME 6 weeks #30 ea 10/29/22 11/19/22 Rx suppository wheat dextrin 3 gram/3.8 gram oral 3 g PO BID #144 grams 10/29/22 11/19/22 Rx powder (Benefiber Sugar Free (dextrin)) Allergies Allergy/AdvReac Type Severity Reaction Status Date / Time Sulfa (Sulfonamide Allergy Verified 11/19/22 09:11 Antibiotics) Exam Vital Signs (past 8 hours): - 11/19/22 09:18 Temperature 98.0 F Pulse Rate 71 Respiratory Rate 17 Blood Pressure 118/77 Pulse Oximetry 99 Oxygen Delivery Method Room Air Oxygen Delivery Method Room Air Narrative Exam Narrative: General adult woman alert oriented no acute distress Abdomen soft nontender nondistended Assessment & Plan Assessment and plan (1) Rectal bleed: Status: Acute Assessment & Plan narrative: 27-year-old woman with chronic rectal bleeding here for diagnostic EGD and colonoscopy. Overview of the procedure was discussed. Operative risks including hemorrhage, missed diagnosis, intestinal injury discussed. Questions have been answered she is in agreement with this plan. She provides her written and verbal consent to proceed.
[2022-11-19 10:06] VITALS: BP 94/57; PULSE 72; RESP 15; TEMP 36.5; O2SAT 100
[2022-11-19 10:11] VITALS: BP 111/59; PULSE 76; RESP 12; O2SAT 100
[2022-11-19 10:16] VITALS: BP 122/77; PULSE 69; RESP 12; O2SAT 100
--- NOTE | 2022-11-19 10:22 | PM.OP.EC ---
Operative Date/Time/Diagnoses Date of procedure: 11/19/22 Time of procedure: 10:22 Pre-op diagnosis: Rectal bleeding Post-op diagnosis: same Procedure & Clinicians Study performed: Esophagoduodenoscopy and colonoscopy Same procedure as scheduled: Yes Indications: 27-year-old woman who has intermittent chronic rectal bleeding here for EGD and colonoscopy. She had a previous exam under anesthesia which demonstrated proctitis but did not entirely explain her clinical symptoms. Surgeon: Farhat Sheriff Procedure Notes Procedure in detail: The history and physical was performed/updated and the patient is ASA class is 1. The procedure was discussed in detail with the patient. Potential risks complications including infection, bleeding, missed diagnosis, perforation, need for surgery, and were explained. Their questions were answered and informed consent was obtained. Patient placed in left lateral decubitus position. Time out was performed. Procedural sedation was administered by Anesthesia. A bite block was placed. the scope was inserted into the mouth and advanced through the esophagus and into the stomach. The stomach was without masses, ulcers or gastritis. The pylorus was intubated and the duodenum was normal to the 2nd portion. The scope was withdrawn into the esophagus the Z line was seen at 35 cm from the incisions. There was no Jimenez's esophagitis, esophageal masses or strictures. Stomach was desufflated and scope removed. Examination began with a thorough inspection of the perianal area there was no evidence of fissures, fistulae, external hemorrhoids or cutaneous malignancy. The colonoscopy scope was then placed into the anal canal and was advanced to the cecum, which was identified by the ileocecal valve, the appendiceal orifice and the confluence of the taenia. The scope was then slowly withdrawn examining colon thoroughly in all directions, irrigating it of any residual stool. No masses polyps or inflammation. The previously noted proctitis has resolved. Random colonic biopsies were taken. Minimal hemorrhoidal tissue The patient tolerated the procedure well. They will be discharged once criteria are met. The prep was of good/excellent quality. The withdrawl time was 6 minutes. Specimen(s): other (Random colonic biopsy) Impression: Normal colonoscopy and esophagoduodenoscopy Post-procedure Recommendations: High fiber diet and Will call with biopsy results Disposition: same day surgery
[2022-11-19 10:25] VITALS: BP 120/77; PULSE 83; RESP 15; TEMP 36.9; O2SAT 100
== END 2022-11-19 10:50 | disposition home or self-care (01) ==
PROVIDERS: Referring Provider Surgery; Visit Provider Surgery
PROC: 0DJ08ZZ Inspection of Upper Intestinal Tract, Via Natural or Artificial Opening Endoscopic (ICD-10-PCS; CPT 43235; principal; 2022-11-19 10:15)
PROC: 0DJD8ZZ Inspection of Lower Intestinal Tract, Via Natural or Artificial Opening Endoscopic (ICD-10-PCS; CPT 45378; 2022-11-19 10:15)
DX: K62.5 Hemorrhage of anus and rectum (principal)
CPT/HCPCS: 45380; 43235; J2704

== ENCOUNTER 2023-05-28 17:14 | Emergency (ER) | payer OTHER, SELFPAY ==
[2023-05-28] VITALS (14 sets, daily range): BP systolic 104–116; BP diastolic 55–71; PULSE 64–97; RESP 12–15; TEMP 36.5; O2SAT 65–99; BMI 28.0
--- NOTE | 2023-05-28 17:38 | DI.US.S_ITS ---
PROCEDURE: US ABDOMEN LIMITED INDICATIONS: RUQ PAIN TECHNIQUE: Real-time scanning was performed of the abdominal and retroperitoneal organs, with image documentation. COMPARISON: None. FINDINGS: Liver: Liver is normal in size and homogeneous in echotexture. Gallbladder: No gallstones. No wall thickening. No pericholecystic edema. Negative sonographic Samaniego's sign. Biliary ducts: Intrahepatic bile ducts are non-dilated. Extrahepatic bile duct caliber measures 4.5 mm. Normal is 6-7 mm or less in diameter, or 10 mm or less post-cholecystectomy. Pancreas: Visualized portions of the pancreas are sonographically normal. Miscellaneous: No free abdominal fluid. No hydronephrosis. IMPRESSION: Unremarkable right upper quadrant ultrasound. Normal gallbladder. No hydronephrosis. Dictated by: Ed Woods M.D. on 05/28/2023 at 20:48 Approved by: Ed Woods M.D. on 05/28/2023 at 20:49
--- NOTE | 2023-05-28 17:38 | DI.US.S_ITS ---
PROCEDURE: US OB LIMITED INDICATIONS: PAIN OUTSIDE/PRIOR DATING DATA: Last menstrual period (LMP): Unknown. LMP-based estimated date of delivery (GRZEGORZ): Unknown. First dating scan (date and location): Unknown. Estimated date of delivery (GRZEGORZ) from first dating scan: 11/12/2023. The calculations are made using the sonographic GRZEGORZ of 11/12/2023. TECHNIQUE: Real-time scanning was performed of the fetus, with image documentation. Endovaginal scanning: Not performed COMPARISON: None. FINDINGS: A single living intrauterine gestation is present. Presentation: Vertex. Placenta: Placental position is posterior, fundal, without previa. Amniotic fluid index: 14.6 cm, normal range is 5-24 cm. Single deepest vertical pocket is 5.2 cm. heart rate: 137 beats per minute. Maternal cervical canal: 2.7 cm long. Normal lower limit is 2.5 cm. Clinically estimated gestational age: 16 weeks 0 days IMPRESSION: Single living intrauterine at 16 weeks 0 days, GRZEGORZ of 11/12/2023. Normal sonographic appearance of the placenta. Dictated by: Ed Woods M.D. on 05/28/2023 at 20:49 Approved by: Ed Woods M.D. on 05/28/2023 at 20:51
[2023-05-28 17:45] LABS: Add Manual Diff / Slide Review NO; Basophils Absolute Auto 100 /uL (0-100); Basophils Percent Auto 0.5 % (0-2); Eosinophils Absolute Auto 0 /uL (0-450); Eosinophils Percent Auto 0.3 % (2-4); Hematocrit 37.2 % (36-46); Hemoglobin 12.3 g/dL (12.0-16.0); Lymphocytes Absolute Auto 1400 /uL (1100-4500); Lymphocytes Percent Auto 10.9 % (25-40); Mean Corpuscular Hemoglobin 29.2 PG (26-34); Mean Corpuscular Volume 88.5 fL (80-100); Monocytes Absolute Auto 1300 /uL (0-900); Neutrophils Absolute Auto 10200 /uL (1500-7000); Neutrophils Percent Auto 78.3 % (50-75); Platelet Count 281 X10^3/uL (150-400); Red Cell Distribution Width 14.9 % (11.6-14.8)
[2023-05-28 17:53] LABS: Alanine Aminotransferase 17 IU/L (<35); Albumin Globulin Ratio 1.2 (1.0-2.8); Alkaline Phosphatase 65 U/L (38-126); Aspartate Aminotransferase 23 IU/L (14-36); BUN Creatinine Ratio 7.7 (6-22); Bilirubin Total 0.6 mg/dL (0.2-1.3); Blood Urea Nitrogen 4 mg/dL (7-17); Calcium 9.3 mg/dL (8.4-10.2); Carbon Dioxide 23 mmol/L (22-32); Chloride 102 mmol/L (98-107); Estimated Glomerular Filt Rate > 60 mL/min (>60); Globulin 3.3 g/dL (1.7-4.1); Glucose 87 mg/dL (70-100); HEMOLYSIS < 15 (0-50); Lipase 110 U/L (23-300); Potassium 3.6 mmol/L (3.4-5.1); Sodium 134 mmol/L (137-145); Total Protein 7.3 g/dL (6.3-8.2)
--- NOTE | 2023-05-28 18:03 | ED.ABDPAIN ---
HPI - Abdominal Pain General Chief Complaint: Abdominal Pain Stated Complaint: crohns, 16 weeks pg, abd pain Time Seen by Provider: 05/28/23 17:37 Source: patient Mode of arrival: Ambulatory History of Present Illness HPI narrative: 27-year-old female with history of Crohn's disease, previously on mesalamine at 16w gestational age presents by private vehicle from home for right upper quadrant abdominal pain and increased bowel movements consistent with Crohn's flare. Currently does not have a GI doctor as she and her family are in the process of moving to [place] in the next several weeks. Denies contractions, vaginal bleeding, cramping. Related Data Home Medications Medication Instructions Recorded Confirmed drospirenone 3 mg-ethinyl 1 tab PO DAILY 10/24/22 11/19/22 estradiol 0.02 mg tablet (GEOFF (28)) sertraline 100 mg tablet (Zoloft) 100 mg PO DAILY 10/24/22 11/19/22 sumatriptan succinate 25 mg tablet 25 mg PO ONCE 10/24/22 11/19/22 zolpidem 10 mg tablet (Ambien) 10 mg PO BEDTIME PRN Migraine 10/24/22 11/19/22 NIFEDIPINE TOPICAL topical 10/29/22 Previous Rx's Medication Instructions Recorded acetaminophen 325 mg capsule 650 mg (2 x 325 mg) PO QID PRN 10/29/22 (Tylenol) pain #60 caps docusate sodium 100 mg capsule 100 mg PO BID #30 caps 10/29/22 (Colace) mesalamine 1,000 mg rectal 1 g MO BEDTIME 6 weeks #30 ea 10/29/22 suppository wheat dextrin 3 gram/3.8 gram oral 3 g PO BID #144 grams 10/29/22 powder (Benefiber Sugar Free (dextrin)) prednisone 20 mg tablet 40 mg (2 x 20 mg) PO DAILY #14 tabs 05/28/23 Allergies Allergy/AdvReac Type Severity Reaction Status Date / Time Sulfa (Sulfonamide Allergy Verified 05/28/23 17:25 Antibiotics) Review of Systems Review of Systems Narrative: Negative except as noted above Patient History Medical History PCOS (polycystic ovarian syndrome) Hemorrhoids Migraines PTSD (post-traumatic stress disorder) Surgical History H/O hemorrhoidectomy [place] teeth extracted Hx of tonsillectomy Family History Father Cancer Grandfather Cancer Uncle Diabetes mellitus Social History marital status: household members: spouse and children lives independently: Yes occupational status: employed Smoking Status: Never smoker alcohol intake: current substance use type: does not use Smoking Status: Never smoker alcohol intake frequency: holidays/special occasions only Alcohol type: hard liquor Substance Use Type: does not use Exam Initial Vital Signs Initial Vital Signs: Vital Signs Temperature 97.7 F 05/28/23 17:17 Pulse Rate 95 H 05/28/23 17:17 Respiratory Rate 15 05/28/23 17:17 Blood Pressure 116/71 05/28/23 17:17 Pulse Oximetry 99 05/28/23 17:17 Oxygen Delivery Method Room Air 05/28/23 17:17 Const: Awake, alert, no acute distress, nontoxic appearing Cardiac: regular rate, regular rhythm RESP: unlabored, clear bilaterally, no wheezing GI: Atraumatic, soft, right upper quadrant tenderness to deep palpation without rebound or guarding, negative Samaniego's sign MSK: Atraumatic, full range of motion, pulses equal Skin: Warm, Dry, intact, no rashes Neuro: AO x3, CN II-XII grossly intact, moves all extremities Psych: affect normal, mood normal, not suicidal, not homicidal Course Orders Ordered: ED Orders 05/28/23 17:27 Complete Blood Count AUTO DIFF Stat Comprehensive Metabolic Panel Stat Lipase Stat 05/28/23 17:38 US OB limited Stat US abdomen limited Stat Discontinued Medications Morphine Sulfate (Morphine 4 Mg/Ml Inj) 4 mg IV NOW ONE Stop: 05/28/23 18:25 Last Admin: 05/28/23 18:39 Dose: 4 mg Documented By: RIVERA Vital Signs Vital signs: Vital Signs - 8 hr 05/28/23 17:17 05/28/23 17:22 05/28/23 17:23 Temperature 97.7 F Pulse Rate 95 H 91 H Respiratory Rate 15 Blood Pressure 116/71 116/71 Pulse Oximetry 99 99 Oxygen Delivery Method Room Air 05/28/23 17:23 05/28/23 17:37 05/28/23 18:00 Temperature Pulse Rate 96 H 72 78 Respiratory Rate Blood Pressure Pulse Oximetry 99 97 97 Oxygen Delivery Method 05/28/23 18:30 05/28/23 19:00 05/28/23 19:30 Temperature Pulse Rate 69 71 68 Respiratory Rate Blood Pressure Pulse Oximetry 97 97 97 Oxygen Delivery Method 05/28/23 20:00 05/28/23 20:20 05/28/23 20:20 Temperature Pulse Rate 65 73 Respiratory Rate Blood Pressure 104/55 L Pulse Oximetry 97 97 Oxygen Delivery Method 05/28/23 20:30 05/28/23 21:00 05/28/23 21:30 Temperature Pulse Rate 73 65 64 Respiratory Rate Blood Pressure Pulse Oximetry 97 98 97 Oxygen Delivery Method 05/28/23 22:00 Temperature Pulse Rate 97 H Respiratory Rate 12 Blood Pressure 104/55 L Pulse Oximetry 65 L Oxygen Delivery Method Room Air MDM - Abdominal Pain Differential Diagnosis Differential diagnosis: Likely abdominal pain, gastroenteritis and pancreatitis Lab Data 05/28/23 17:27 05/28/23 17:27 Labs: Lab Results 05/28/23 Range/Units 17:27 WBC 13.0 H (4.5-11.0) X10^3/uL RBC 4.20 (4.0-5.2) X10^6/uL Hgb 12.3 (12.0-16.0) g/dL Hct 37.2 (36-46) % MCV 88.5 (80-100) fL MCH 29.2 (26-34) PG MCHC 33.0 (30-36) % RDW 14.9 H (11.6-14.8) % Plt Count 281 (150-400) X10^3/uL Neut % (Auto) 78.3 H (50-75) % Lymph % (Auto) 10.9 L (25-40) % [place] % (Auto) 10.0 (3-14) % Eos % (Auto) 0.3 L (2-4) % Baso % (Auto) 0.5 (0-2) % Neut # (Auto) 65638 H (8885-4413) /uL Lymph # (Auto) 1400 (8218-4171) /uL [place] # (Auto) 1300 H (0-900) /uL Eos # (Auto) 0 (0-450) /uL Baso # (Auto) 100 (0-100) /uL Sodium 134 L (137-145) mmol/L Potassium 3.6 (3.4-5.1) mmol/L Chloride 102 (98-107) mmol/L Carbon Dioxide 23 (22-32) mmol/L BUN 4 L (7-17) mg/dL Creatinine 0.52 (0.52-1.04) mg/dL Estimated GFR > 60 (>60) mL/min BUN/Creatinine Ratio 7.7 (6-22) Glucose 87 (70-100) mg/dL Calcium 9.3 (8.4-10.2) mg/dL Total Bilirubin 0.6 (0.2-1.3) mg/dL AST 23 (14-36) IU/L ALT 17 (<35) IU/L Alkaline Phosphatase 65 (38-126) U/L Total Protein 7.3 (6.3-8.2) g/dL Albumin 4.0 (3.5-5.0) g/dL Globulin 3.3 (1.7-4.1) g/dL Albumin/Globulin Ratio 1.2 (1.0-2.8) Lipase 110 (23-300) U/L Point of care testing: Urine Dip Bedside Urine Glucose Negative Bedside Urine Bilirubin - Negative Bedside Urine Ketone +++ 80 Urine Specific [place] 1.020 Bedside Urine Occult Blood - Negative Bedside Urine pH 6.5 Bedside Urine Protein - Negative Bedside Urine Urobilinogen - Negative Bedside Urine Nitrite - Negative Bedside Urine Leukocytes - Negative Esterase MDM Narrative Medical decision making narrative: Well-appearing patient with abdominal pain consistent with Crohn's flare. Abdomen is soft, she was tender in the right upper quadrant. Palpable uterus. We will order labs and ultrasound imaging. Ultrasound negative for acute findings. Laboratory work is significant for trace leukocytosis with WBCs 13, normal in . Liver enzymes are normal. Call placed to Dr. Washington of gastroenterology, who recommended 1 week of 40 mg prednisone and urgent GI follow up. Patient and advised of lab and imaging findings at bedside as well as GI recommendations. Patient states that she has a pending GI referral in [place] that is pending insurance approval. Steroids sent to pharmacy of choice. Patient states she is plenty of antiemetics at home. Discharge Plan Departure Patient Disposition: Home Clinical Impression: Crohn's disease, Abdominal pain Instructions: DI for Crohn's Disease Flare Activity Restrictions/Additional Instructions: Your ultrasound of the abdomen and your OB ultrasound were normal today. GI recommends that you take 40 mg of prednisone daily for 1 week with urgent follow up in the office. Call Nancy to schedule GI follow up in [place] Prescriptions: New prednisone 20 mg tablet 40 mg PO DAILY Qty: 14 0RF No Action NIFEDIPINE TOPICAL topical Rx Instructions: 0.2% NIFEDIPINE AND 2% LIDOCAINE CALLED INTO [facility]. 30GRAMS 1 REFILL [phone] zolpidem [Ambien] 10 mg tablet 10 mg PO BEDTIME PRN (Reason: Migraine) drospirenone-ethinyl estradiol [GEOFF (28)] 3-0.02 mg tablet 1 tab PO DAILY sertraline [Zoloft] 100 mg tablet 100 mg PO DAILY sumatriptan succinate 25 mg tablet 25 mg PO ONCE docusate sodium [Colace] 100 mg capsule 100 mg PO BID Qty: 30 0RF acetaminophen [Tylenol] 325 mg capsule 650 mg PO QID PRN (Reason: pain) Qty: 60 0RF Benefiber Sugar Free (dextrin) 3 gram/3.8 gram powder 3 g PO BID Qty: 144 0RF Rx Instructions: mix into at least 4 oz water or juice before administering mesalamine 1,000 mg suppository 1 g MO BEDTIME 42 Days Qty: 30 3RF Referrals: ProviderDeangelo [Primary Care Provider] - Stand Alone Forms: Patient Portal/API
[2023-05-28] MEDS: MORPHINE 4 MG/ML INJ IV (18:39)
== END 2023-05-28 22:02 | disposition home or self-care (01) ==
PROVIDERS: Emergency Medicine; Emergency Provider Emergency Medicine
DX: O26.92 Pregnancy related conditions, unspecified, second trimester (principal); K50.90 Crohn's disease, unspecified, without complications; R10.9 Unspecified abdominal pain; Z3A.16 16 weeks gestation of pregnancy
CPT/HCPCS: 36415; 76705; 76815; 80053; 81003; 83690; 85025; 96374; 99284; J2270

== ENCOUNTER 2023-06-08 20:07 | Emergency (ER) | payer OTHER, SELFPAY ==
[2023-06-08 20:15] VITALS: BP 109/70; PULSE 110; RESP 16; TEMP 36.3; O2SAT 97; BMI 28.3
== END 2023-06-08 23:20 | disposition left against medical advice (07) ==
PROVIDERS: Emergency Provider Emergency Medicine
CPT/HCPCS: 99281